=== PATIENT | female | born 1975 | race Caucasian/White ===

== ENCOUNTER 2017-01-16 14:12 | Observation (INO) | payer SELFPAY ==
[2017-01-16 14:12] VITALS: BMI 26.5
--- NOTE | 2017-01-16 15:13 | ED PDOC ---
HPI: General Adult Time Seen by Provider: 01/16/17 14:43 Chief Complaint (Nursing): Back Pain History Per: Patient Additional Complaint(s): Pt. states or the past 20 months she's had non-radiating atraumatic lower back pain. Reports pain began while she was and has continued despite no longer being . States that this past week she's developed increase in urinary frequency without dysuria or hematuria. Pain in lower back is worsened with movement. Denies incontinence, fever, trauma, abdominal pain, N/V/D, flank pain. Past Medical History Reviewed: Historical Data, Nursing Documentation, Vital Signs Vital Signs: Last Vital Signs Temp 98.3 F 01/16/17 22:04 Pulse 62 01/16/17 23:30 Resp 20 01/16/17 22:04 BP 91/55 L 01/16/17 22:04 Pulse Ox 100 01/16/17 23:30 - Medical History PMH: Gastritis - Surgical History Surgical History: Cholecystectomy - Family History Family History: States: No Known Family Hx - Immunization History Hx Tetanus Toxoid Vaccination: No Hx Influenza Vaccination: No Hx Pneumococcal Vaccination: No - Home Medications Home Medications: Ambulatory Orders Medication Instructions Recorded Famotidine [Pepcid] 20 mg PO DAILY #30 tab 05/13/14 Mag Hydrox/Al Hydrox/Simeth 30 ml PO BID #1 bottle 05/13/14 [Maalox Advanced Suspension] Doxylamine Succinate [Unisom] 1 tab PO BID #60 tab 09/02/14 Multivitamin and Pfimyswa44 1 tab PO DAILY #30 tab 09/02/14 [] Pyridoxine [Pyridoxine HCl] 1 tab PO BID #60 tab 09/02/14 Famotidine [Pepcid] 20 mg PO DAILY PRN #10 tab 12/28/14 - Allergies Allergies/Adverse Reactions: Allergies Allergy/AdvReac Type Severity Reaction Status Date / Time No Known Allergies Allergy Verified 01/16/17 14:37 Review of Systems ROS Statement: Except As Marked, All Systems Reviewed And Found Negative Genitourinary Female: Positive for: Frequency Musculoskeletal: Positive for: Back Pain Physical Exam - Physical Exam Appears: Positive for: Well, Non-toxic, No Acute Distress Skin: Positive for: Normal Color, Warm. Negative for: Rash Gastrointestinal/Abdominal: Positive for: Normal Exam, Soft. Negative for: Tenderness Back: Positive for: Normal Inspection, Muscle Spasm (b/l paralumbar tenderness) . Negative for: L CVA Tenderness, R CVA Tenderness, Vertebral Tenderness Extremity: Positive for: Normal ROM Neurologic/Psych: Positive for: Alert, Oriented. Negative for: Aphasia, Facial Droop - Laboratory Results Result Diagrams: 01/16/17 16:15 01/16/17 16:15 Urine POC: Negative Urine dip results: Positive for: Blood (moderate). Negative for: Leukocyte Esterase, Nitrate, Ketones, Glucose, Bilirubin, Protein - ECG ECG: Positive for: Interpreted By Me ECG Rhythm: Positive for: Sinus Rhythm. Negative for: ST/T Changes Rate: 62 O2 Sat by Pulse Oximetry: 100 - Progress ED Course And Treament: Toradol 15mg IM, flexeril 10mg PO given. LS spine x-ray ordered. ED OBSERVATION Discharge: Yes Date of observation admission: 01/16/17 Time of observation admission: 16:10 - Observation admission statement Patient is being placed in observation because:: back pain, hematuria - Progress Note Progress Note: 01/16/17 16:10 Pt. with moderate amount of hematuria. CT abd/pelvis w/o contrast ordered. Labs ordered. 01/16/17 17:33 K: 5.2. EKG, albuterol neb x 1 given. Pain improved. 01/16/17 19:16 Sleeping comfortably. No distress. Repeat BP: 91/44 01/16/17 22:16 IV NS bolus x 1 given. Repeat BP: 91/55. Previous VS indicate this is pt's baseline BP. 01/16/17 22:[address] at . 01/16/17 23:29 Pt. returned from [facility] without incident. Waiting on results. 01/16/17 23:35 CT abd/pelvis w/o contrast: no definite kidney stones as per my discussion with ad radiologist. Pt. informed of results. Disposition - Clinical Impression Clinical Impression: Low back pain, Hematuria, Hyperkalemia - Patient ED Disposition Is Patient to be Admitted: No - Disposition Disposition: Routine/Home Disposition Time: 23:38 Condition: STABLE
--- NOTE | 2017-01-16 16:30 | RAD ---
PROCEDURE: Radiographs of the Lumbar Spine. HISTORY: pain COMPARISON: None available. FINDINGS: BONES: Alignment appears satisfactory. No listhesis. No acute displaced fracture identified. DISC SPACES: Unremarkable. OTHER FINDINGS: None. IMPRESSION: No acute displaced fracture or subluxation identified.
[2017-01-16 16:47] LABS: BASO % 0.3 % (0.0-2.0); EOS # 0.1 K/uL (0.0-0.7); EOS % 0.8 % (0.0-4.0); HEMATOCRIT 38.9 % (34.0-47.0); LYMPH # 2.3 K/uL (1.0-4.3); LYMPH % 28.6 % (20.0-40.0); MEAN CELL VOLUME 91.4 fl (81.0-99.0); MEAN CORPUSCULAR HEMOGLOBIN 30.3 pg (27.0-31.0); MEAN CORPUSCULAR HGB CONC 33.1 g/dL (33.0-37.0); MEAN PLATELET VOLUME 9.5 fl (7.2-11.7); MONO # 0.6 K/uL (0.0-0.8); MONO % 7.7 % (0.0-10.0); NEUT % 62.6 % (50.0-75.0); RED CELL DISTRIBUTION WIDTH 13.4 % (11.5-14.5)
[2017-01-16 17:06] LABS: ALB/GLOB RATIO 1.3 (1.0-2.1); ALKALINE PHOSPHATASE 64 U/L (38-126); ALT/SGPT 29 U/L (9-52); AST/SGOT 16 U/L (14-36); BILIRUBIN,TOTAL 0.6 mg/dl (0.2-1.3); BLOOD UREA NITROGEN 15 mg/dl (7-17); CALCIUM 9.6 mg/dL (8.4-10.2); CARBON DIOXIDE 23 mmol/L (22-30); CHLORIDE 105 mmol/L (98-107); GFR AFRICAN-AMERICAN > 60; GLUCOSE,RANDOM 91 mg/dL (65-105); SODIUM 138 mmol/l (132-148); TOTAL PROTEIN 7.2 G/DL (6.3-8.2)
[2017-01-16 17:09] LABS: POTASSIUM 5.2 MMOL/L (3.6-5.0)
[2017-01-16] MEDS ORDERED: Albuterol 0.083% Inhal Sol (2.5 mg/3 mL) UD INH STA (17:32)
[2017-01-16] MEDS ORDERED: Albuterol 0.083% Inhal Sol (2.5 mg/3 mL) UD ONE (17:55)
[2017-01-16] MEDS ORDERED: Sodium Chloride 0.9% 1,000 ML IV STA (20:18)
[2017-01-16 20:31] VITALS: RESP 20; TEMP 98.3
[2017-01-16 22:04] VITALS: BP 91/55
[2017-01-16 22:17] VITALS: PULSE 62; O2SAT 100
--- NOTE | 2017-01-18 07:22 | CARD ---
APPROVED REPORT EKG Measurement Heart [id number] <Conclusion> Normal sinus rhythm Normal ECG
== END 2017-01-16 23:42 | disposition home or self-care (01) ==
LOC: H.ER 14:12 → H.EROBSV 16:09
PROVIDERS: ADMIT Emergency Medicine; ATTEND Emergency Medicine
DX: M54.5 Low back pain (principal); E87.5 Hyperkalemia; R31.9 Hematuria, unspecified
CPT/HCPCS: 72100; 80053; 85025; 93005; 96372; 99283; G0378; J1885; J7040

== ENCOUNTER 2018-10-23 12:22 | Observation (INO) | payer OTHER ==
[2018-10-23 12:23] VITALS: BMI 26.5
--- NOTE | 2018-10-23 13:22 | ED PDOC ---
HPI: Abdomen History Per: Patient, Counter Roller (Edvinpatrica, Nepali: [id number]) Onset/Duration Of Symptoms: Days Location Of Pain/Discomfort: RUQ Associated Symptoms: Chills Additional Complaint(s): Pt is a 42 y/o female with hx of Nephrolithiasis and Cholecystectomy presenting to ED with complaints of RUQ and R. Flank pain. States pain began 2 weeks ago, was initially intermittent, but 3 days ago became constant. Aggravating factors include movement and urinating. She states this pain feels like when she had her gall bladder removed many years ago. She also reports nausea and chills. Denies fevers, vomiting, dysuria, blood in urine or stool, or any change in pain after eating. ROS: loose stools x3 days PMD: none PMHX: Nephrolithiasis (15 years ago, treated conservatively, no surgical intervention), Cholelithiasis s/p Cholecystectomy (10 years ago). Acute Hepatitis A/B infection in 2013 PSurgHx: R. Ovarian cystectomy FmH: Does not know Social: Denies smoking, alcohol, or drug use <Silvestre Bullard - Last Filed: 10/23/18 15:41> <Sana Mckeon - Last Filed: 10/26/18 17:16> Time Seen by Provider: 10/23/18 12:54 Chief Complaint (Nursing): Abdominal Pain Supervising Attending Note - Supervising Attending Note The Documented history was done by the: Physician Windows Deployment Technician, Attending Physician The documented physical exam was done by the: Physician Windows Deployment Technician, Attending Physician The documented procedures were done by the: Physician Windows Deployment Technician, Attending Phys ician - Attestation: I have personally seen and examined this patient.: Yes I have fully participated in the care of the patient.: Yes I have reviewed all pertinent clinical information: Yes <Sana Mckeon - Last Filed: 10/26/18 17:16> Past Medical History Reviewed: Historical Data, Nursing Documentation, Vital Signs Vital Signs: Last Vital Signs Temp 98.4 F 10/23/18 12:29 Pulse 77 10/23/18 12:29 Resp 18 10/23/18 12:29 BP 111/65 10/23/18 12:29 Pulse Ox 100 10/23/18 12:29 - Medical History PMH: Gastritis, Hepatitis, Kidney Stones - Surgical History Surgical History: Cholecystectomy - Family History Family History: States: Unknown Family Hx - Living Arrangements Living Arrangements: With Family - Immunization History Hx Tetanus Toxoid Vaccination: No Hx Influenza Vaccination: No Hx Pneumococcal Vaccination: No <Silvestre Bullard - Last Filed: 10/23/18 15:41> Reviewed: Historical Data Vital Signs: Last Vital Signs Temp 98.0 F 10/24/18 08:04 Pulse 66 10/24/18 08:04 Resp 19 10/24/18 08:04 BP 99/65 L 10/24/18 08:04 Pulse Ox 98 10/24/18 08:04 <Sana Mckeon A - Last Filed: 10/26/18 17:16> - Home Medications Home Medications: Ambulatory Orders Medication Instructions Recorded No Known Home Med 10/23/18 - Allergies Allergies/Adverse Reactions: Allergies Allergy/AdvReac Type Severity Reaction Status Date / Time No Known Allergies Allergy Verified 10/23/18 12:29 Review of Systems Constitutional: Positive for: Chills. Negative for: Fever Cardiovascular: Negative for: Chest Pain Respiratory: Negative for: Cough, Shortness of Breath Gastrointestinal: Positive for: Nausea, Abdominal Pain, Diarrhea. Negative for: Vomiting, Melena, Hematochezia, Hematemesis Genitourinary Female: Negative for: Hematuria Skin: Negative for: Rash <Silvestre Bullard - Last Filed: 10/23/18 15:41> ROS Statement: Except As Marked, All Systems Reviewed And Found Negative <Sana Mckeon A - Last Filed: 10/26/18 17:16> Physical Exam - Physical Exam Appears: Positive for: Uncomfortable Skin: Positive for: Normal Color Neck: Positive for: Normal, Supple Cardiovascular/Chest: Positive for: Regular Rate, Rhythm Respiratory: Positive for: Normal Breath Sounds. Negative for: Crackles, Rales, Wheezing Pulses-Radial (L): 2+ Pulses-Radial (R): 2+ Gastrointestinal/Abdominal: Positive for: Soft, Tenderness (tenderness on light palpation in RUQ and Epigastric region), Guarding (Voluntary, no involuntary). Negative for: Organomegaly, Distended, Hernia, Asicites Back: Positive for: R CVA Tenderness. Negative for: Vertebral Tenderness, Muscle Spasm Extremity: Positive for: Capillary Refill. Negative for: Pedal Edema Neurological/Psych: Positive for: Awake, Alert <Silvestre Bullard - Last Filed: 10/23/18 15:41> - Reviewed Nursing Documentation Reviewed: Yes Vital Signs Reviewed: Yes - Physical Exam Eye Exam: Positive for: EOMI <Sana Mckeon - Last Filed: 10/26/18 17:16> - Laboratory Results Result Diagrams: 10/23/18 13:25 10/23/18 13:25 - ECG O2 Sat by Pulse Oximetry: 100 <Silvestre Bullard - Last Filed: 10/23/18 15:41> - Laboratory Results Result Diagrams: 10/24/18 05:45 10/24/18 05:45 Lab Results: PT 11.8 Seconds (9.8-13.1) 10/24/18 05:45 INR 1.0 10/24/18 05:45 APTT 37.3 Seconds (25.6-37.1) H 10/24/18 05:45 Total Bilirubin 0.4 mg/dl (0.2-1.3) 10/23/18 13:25 AST 25 U/L (14-36) 10/23/18 13:25 ALT 19 U/L (9-52) 10/23/18 13:25 Alkaline Phosphatase 66 U/L (38-126) 10/23/18 13:25 Total Protein 7.4 G/DL (6.3-8.2) 10/23/18 13:25 Albumin 4.3 g/dL (3.5-5.0) 10/23/18 13:25 Globulin 3.2 gm/dL (2.2-3.9) 10/23/18 13:25 Albumin/Globulin Ratio 1.4 (1.0-2.1) 10/23/18 13:25 Lipase 77 U/L (23-300) 10/23/18 13:25 Urine Color Yellow (YELLOW) 10/23/18 13:25 Urine Appearance Clear (CLEAR) 10/23/18 13:25 Urine pH 5.0 (5.0-8.0) 10/23/18 13:25 Ur Specific [place] 1.019 (1.003-1.030) 10/23/18 13:25 Urine Protein Negative mg/dL (NEGATIVE) 10/23/18 13:25 Urine Glucose (UA) Negative mg/dL (NEGATIVE) 10/23/18 13:25 Urine Ketones Negative mg/dL (NEGATIVE) 10/23/18 13:25 Urine Blood Moderate (NEGATIVE) 10/23/18 13:25 Urine Nitrate Negative (NEGATIVE) 10/23/18 13:25 Urine Bilirubin Negative (NEGATIVE) 10/23/18 13:25 Urine Urobilinogen 0.2 mg/dL (0.2-1.0) 10/23/18 13:25 Ur Leukocyte Esterase Negative Sinan/uL (Negative) 10/23/18 13:25 <Sana Mckeon - Last Filed: 10/26/18 17:16> Medical Decision Making Medical Decision Making: Pt is a 42 y/o female with hx of Nephrolithiasis and Cholecystectomy presenting to ED with complaints of RUQ and R. Flank pain associated with chills and nausea. Differential diagnosis includes but not limited to Nephrolithiasis, Chol edocolithiasis, Hepatitis, Pancreatitis Toradol Zofran Pepcid CBC CMP Lipase UA Abdomen/Pelvis CT w/o contrast 1400 Pt re-assessed, received pain medication. Reports pain is improved, currently 2/ 10. Seen resting comfortably. All Labs wnl. UA moderate blood CT Abdomen Pending <Silvestre Bullard - Last Filed: 10/23/18 15:41> Disposition Discussed With : Sana Mckeon - Disposition Disposition Time: 15:41 <Silvestre Bullard - Last Filed: 10/23/18 15:41> - Patient ED Disposition Is Patient to be Admitted: Transfer of Care Counseled Patient/Family Regarding: Studies Performed, Diagnosis - Disposition Disposition: Transfer of Care Disposition Time: 15:00 Patient Signed Over To: Jairo Edmonds <Sana Mckeon - Last Filed: 10/26/18 17:16> - Clinical Impression Clinical Impression: Appendicitis - Disposition Condition: FAIR
[2018-10-23 13:59] LABS: URINE APPEARANCE CLEAR (CLEAR); URINE BILIRUBIN NEGATIVE (NEGATIVE); URINE BLOOD MODERATE (NEGATIVE); URINE COLOR YELLOW (YELLOW); URINE GLUCOSE (UA) NEGATIVE (NEGATIVE); URINE PROTEIN NEGATIVE (NEGATIVE)
[2018-10-23 14:00] LABS: URINE LEUKOCYTE ESTERASE NEGATIVE Leu/uL (Negative); URINE UROBILINOGEN 0.2 mg/dL (0.2-1.0)
[2018-10-23 14:02] LABS: ALB/GLOB RATIO 1.4 (1.0-2.1); ALBUMIN 4.3 g/dL (3.5-5.0); ALT/SGPT 19 U/L (9-52); AST/SGOT 25 U/L (14-36); BLOOD UREA NITROGEN 14 mg/dl (7-17); CALCIUM 9.7 mg/dL (8.4-10.2); GFR NON-AFRICAN AMERICAN > 60; LIPASE 77 U/L (23-300)
[2018-10-23 15:25] LABS: BASO % 0.5 % (0.0-2.0); EOS # 0.1 K/uL (0.0-0.7); EOS % 2.1 % (0.0-4.0); HEMOGLOBIN 12.8 g/dL (12.0-16.0); LYMPH # 1.8 K/uL (1.0-4.3); LYMPH % 27.4 % (20.0-40.0); MEAN CELL VOLUME 91.1 fl (81.0-99.0); MEAN CORPUSCULAR HEMOGLOBIN 30.1 pg (27.0-31.0); MEAN CORPUSCULAR HGB CONC 33.1 g/dL (33.0-37.0); MEAN PLATELET VOLUME 8.9 fl (7.2-11.7); MONO # 0.5 K/uL (0.0-0.8); MONO % 7.7 % (0.0-10.0); NEUT # 4.2 K/uL (1.8-7.0); NEUT % 62.3 % (50.0-75.0); RBC 4.25 Mil/uL (3.80-5.20); RED CELL DISTRIBUTION WIDTH 13.4 % (11.5-14.5); WHITE BLOOD COUNT 6.7 K/uL (4.8-10.8)
--- NOTE | 2018-10-23 15:38 | ED PDOC ---
- Laboratory Results Result Diagrams: 10/23/18 13:25 10/23/18 13:25 Lab Results: Total Bilirubin 0.4 mg/dl (0.2-1.3) 10/23/18 13:25 AST 25 U/L (14-36) 10/23/18 13:25 ALT 19 U/L (9-52) 10/23/18 13:25 Alkaline Phosphatase 66 U/L (38-126) 10/23/18 13:25 Total Protein 7.4 G/DL (6.3-8.2) 10/23/18 13:25 Albumin 4.3 g/dL (3.5-5.0) 10/23/18 13:25 Globulin 3.2 gm/dL (2.2-3.9) 10/23/18 13:25 Albumin/Globulin Ratio 1.4 (1.0-2.1) 10/23/18 13:25 Lipase 77 U/L (23-300) 10/23/18 13:25 Urine Color Yellow (YELLOW) 10/23/18 13:25 Urine Appearance Clear (CLEAR) 10/23/18 13:25 Urine pH 5.0 (5.0-8.0) 10/23/18 13:25 Ur Specific [place] 1.019 (1.003-1.030) 10/23/18 13:25 Urine Protein Negative mg/dL (NEGATIVE) 10/23/18 13:25 Urine Glucose (UA) Negative mg/dL (NEGATIVE) 10/23/18 13:25 Urine Ketones Negative mg/dL (NEGATIVE) 10/23/18 13:25 Urine Blood Moderate (NEGATIVE) 10/23/18 13:25 Urine Nitrate Negative (NEGATIVE) 10/23/18 13:25 Urine Bilirubin Negative (NEGATIVE) 10/23/18 13:25 Urine Urobilinogen 0.2 mg/dL (0.2-1.0) 10/23/18 13:25 Ur Leukocyte Esterase Negative Sinan/uL (Negative) 10/23/18 13:25 - ECG O2 Sat by Pulse Oximetry: 100 (RA) Pulse Ox Interpretation: Normal - CT Scan/US ct Other Rad Studies (CT/US): Read By Radiologist Other Rad Interpretation: appendicitis - Progress ED Course And Treament: 1720: Stable. AAOx3. Pain present on palpation. Spoke with surgery resident who will see pt. in ER. 1814: Spoke with surgery resident. Will consult. Want admit to medicine. Spoke with Dr. Hernandez. Will admit. Medical Decision Making Medical Decision Makin Patient signed over to me by Dr. Mckeon pending CT results. Scribe Attestation: Documented by Barbara Newell, acting as a scribe for Jairo Edmonds MD. Provider Scribe Attestation: All medical record entries made by the Scribe were at my direction and personally dictated by me. I have reviewed the chart and agree that the record accurately reflects my personal performance of the history, physical exam, medical decision making, and the department course for this patient. I have also personally directed, reviewed, and agree with the discharge instructions and disposition. Disposition - Clinical Impression Clinical Impression: Appendicitis - POA Present On Arrival: None - Disposition Disposition: Hospitalized as Observation Patient Disposition Time: 18:16 Condition: FAIR
[2018-10-23] MEDS ORDERED: Sodium Chloride 0.9% 50 ML IV ONE (15:54)
[2018-10-23] MEDS ORDERED: Iohexol 300 100 ML IJ ONE (15:54)
--- NOTE | 2018-10-23 17:18 | CT ---
Date of service: 10/23/2018 PROCEDURE: CT Abdomen and Pelvis with contrast HISTORY: right upper abdomen right flank pain COMPARISON: 05/17/2014 CT abdomen and pelvis. 05/17/2014 abdominal ultrasound. 05/18/2014 MRCP TECHNIQUE: Intravenous contrast dose: 95 cc Omnipaque 300. Radiation dose: Total exam DLP = 675.61 mGy-cm. This CT exam was performed using one or more of the following dose reduction techniques: Automated exposure control, adjustment of the mA and/or kV according to patient size, and/or use of iterative reconstruction technique. FINDINGS: LOWER THORAX: Unremarkable. LIVER: Unremarkable. No gross lesion or ductal dilatation. GALLBLADDER AND BILE DUCTS: Status post cholecystectomy. No abnormality is seen in the gallbladder fossa. PANCREAS: Unremarkable. No gross lesion or ductal dilatation. SPLEEN: Unremarkable. ADRENALS: Unremarkable. No mass. KIDNEYS AND URETERS: Unremarkable. No hydronephrosis. No solid mass. VASCULATURE: Unremarkable. No aortic aneurysm. No atherosclerotic calcification or mural plaque present. BOWEL: Unremarkable. No obstruction. No gross mural thickening. APPENDIX: 8.5 mm Appendix with contrasting enhancement of the wall, suggest early acute appendicitis PERITONEUM: Unremarkable. No free fluid. No free air. LYMPH NODES: Unremarkable. No enlarged lymph nodes. BLADDER: Unremarkable. REPRODUCTIVE: Prominent para adnexal vessels may reflect pelvic congestion syndrome BONES: No acute fracture. OTHER FINDINGS: None. IMPRESSION: Early acute appendicitis suspect Communication of results I discussed findings with Dr. Edmonds in the ED at 17:05
[2018-10-23] MEDS ORDERED: Piperacillin/Tazobact 3.375 GM in Sodium Chloride 0.9% 100 ML IV STA (17:28)
[2018-10-23] MEDS ORDERED: Piperacillin/Tazobact 3.375 gm Inj IVPB ONE (17:35)
--- NOTE | 2018-10-23 22:44 | CP.PCM.CON ---
History of Present Illness - History of Present Illness History of Present Illness: General Surgery Consult for Dr. Antoine This is a 42F with no PMH who presents to the [facility] ED with complaints of abdominal pain that began 1-2 weeks ago however its been worse the last 4 days. The pain is of right sided upper and lower abdomen. Nothing makes the pain better and moving makes it worse. She reports that pain is similar to when she had the GB removed in the sense that at that time movement made her pain worse as well. She reports that she is nauseas however denies vomiting. She denies fevers or chills. She is tolerating diet and passing gas and moving her bowels normally. PMH: Kidney stones PSH: Open [place], R. Ovarian cystectomy ALL: NKDA Social: Denies smoking, alcohol, or drug use Past Patient History - Tetanus Immunizations Tetanus Immunization: Unknown - Past Medical History & Family History Past Medical History?: No - Past Social History Smoking Status: Never Smoked - CARDIAC Hx Cardiac Disorders: Yes - PULMONARY Hx Respiratory Disorders: No - NEUROLOGICAL Hx Neurological Disorder: No - HEENT Hx HEENT Problems: No - RENAL Hx Chronic Kidney Disease: No - ENDOCRINE/METABOLIC Hx Endocrine Disorders: No - HEMATOLOGICAL/ONCOLOGICAL Hx Blood Disorders: No - INTEGUMENTARY Hx Dermatological Problems: No - MUSCULOSKELETAL/RHEUMATOLOGICAL Hx Musculoskeletal Disorders: No - GASTROINTESTINAL Hx Gastritis: Yes - GENITOURINARY/GYNECOLOGICAL Hx Genitourinary Disorders: No - PSYCHIATRIC Hx Psychophysiologic Disorder: No - SURGICAL HISTORY Hx Cholecystectomy: Yes - ANESTHESIA Hx Anesthesia: Yes Hx Anesthesia Reactions: No Hx Malignant Hyperthermia: No Meds Allergies/Adverse Reactions: Allergies Allergy/AdvReac Type Severity Reaction Status Date / Time No Known Allergies Allergy Verified 10/23/18 12:29 Physical Exam - Constitutional Appears: Non-toxic - Head Exam Head Exam: ATRAUMATIC, NORMOCEPHALIC - Eye Exam Eye Exam: EOMI, Normal appearance - ENT Exam ENT Exam: Mucous Membranes Moist - Cardiovascular Exam Cardiovascular Exam: +S1, +S2 - GI/Abdominal Exam GI & Abdominal Exam: Soft, Tenderness. absent: Distended, Firm, Guarding, Hernia, Rigid - Neurological Exam Neurological exam: Alert, Oriented x3 - Psychiatric Exam Psychiatric exam: Normal Affect, Normal Mood - Skin Skin Exam: Dry, Intact Results - Vital Signs Recent Vital Signs: Last Vital Signs Temp 98.6 F 10/23/18 22:11 Pulse 68 10/23/18 22:11 Resp 18 10/23/18 22:11 BP 99/57 L 10/23/18 22:11 Pulse Ox 100 10/23/18 22:01 - Labs Result Diagrams: 10/23/18 13:25 10/23/18 13:25 Labs: Laboratory Results - last 24 hr 10/23/18 10/23/18 10/23/18 12:50 13:25 13:25 WBC 6.7 Cancelled RBC 4.25 Cancelled Hgb 12.8 Cancelled Hct 38.7 Cancelled MCV 91.1 Cancelled MCH 30.1 Cancelled MCHC 33.1 Cancelled RDW 13.4 Cancelled Plt Count 247 Cancelled MPV 8.9 Cancelled Neut % (Auto) 62.3 Cancelled Lymph % (Auto) 27.4 Cancelled [place] % (Auto) 7.7 Cancelled Eos % (Auto) 2.1 Cancelled Baso % (Auto) 0.5 Cancelled Neut # (Auto) 4.2 Lymph # (Auto) 1.8 Cancelled [place] # (Auto) 0.5 Cancelled Eos # (Auto) 0.1 Cancelled Baso # (Auto) 0.0 Cancelled Absolute Neuts (auto) Cancelled Sodium 139 Potassium 4.3 Chloride 103 Carbon Dioxide 26 Anion Gap 14 BUN 14 Creatinine 0.5 L Est GFR ( Amer) > 60 Est GFR (Non-Af Amer) > 60 Random Glucose 90 Calcium 9.7 Total Bilirubin 0.4 AST 25 ALT 19 Alkaline Phosphatase 66 Total Protein 7.4 Albumin 4.3 Globulin 3.2 Albumin/Globulin Ratio 1.4 Lipase 77 Urine Color Urine Appearance Urine pH Ur Specific [place] Urine Protein Urine Glucose (UA) Urine Ketones Urine Blood Urine Nitrate Urine Bilirubin Urine Urobilinogen Ur Leukocyte Esterase 10/23/18 13:25 WBC RBC Hgb Hct MCV MCH MCHC RDW Plt Count MPV Neut % (Auto) Lymph % (Auto) [place] % (Auto) Eos % (Auto) Baso % (Auto) Neut # (Auto) Lymph # (Auto) [place]odd[place] # (Auto) Eos # (Auto) Baso # (Auto) Absolute Neuts (auto) Sodium Potassium Chloride Carbon Dioxide Anion Gap BUN Creatinine Est GFR ( Amer) Est GFR (Non-Af Amer) Random Glucose Calcium Total Bilirubin AST ALT Alkaline Phosphatase Total Protein Albumin Globulin Albumin/Globulin Ratio Lipase Urine Color Yellow Urine Appearance Clear Urine pH 5.0 Ur Specific [place] 1.019 Urine Protein Negative Urine Glucose (UA) Negative Urine Ketones Negative Urine Blood Moderate Urine Nitrate Negative Urine Bilirubin Negative Urine Urobilinogen 0.2 Ur Leukocyte Esterase Negative - Imaging and Cardiology CT scan - abdomen Status: Image reviewed by me, Report reviewed by me CT scan - pelvis Status: Image reviewed by me, Report reviewed by me Assessment & Plan - Assessment and Plan (Free Text) Assessment: 42F with abdominal pain CT scan reading for possible early appendicitis however, however it is my opinion that it is unlikely to be an appendicitis at this time, due to the patients labs, clinical exam and duration of symptoms do not correlate. No surgical intervention planned at this time however we will re-evaluate the patient in the AM. Continue medical management per primary. D/W Dr. Elina Saleh PGY3
[2018-10-23] MEDS ORDERED: Dextrose 5%/0.45% NS 1,000 ML IV SCH (23:15)
[2018-10-23 23:54] VITALS: TEMP 98
[2018-10-24] MEDS: Piperacillin/Tazobact 3.375 GM in Sodium Chloride 0.9% 100 ML IVPB SCH ×2 (01:39→11:20)
[2018-10-24 06:39] LABS: BASO % 0.4 % (0.0-2.0); EOS # 0.2 K/uL (0.0-0.7); EOS % 3.1 % (0.0-4.0); LYMPH # 2.2 K/uL (1.0-4.3); LYMPH % 35.3 % (20.0-40.0); MEAN CELL VOLUME 90.8 fl (81.0-99.0); MEAN CORPUSCULAR HEMOGLOBIN 30.1 pg (27.0-31.0); MEAN CORPUSCULAR HGB CONC 33.1 g/dL (33.0-37.0); MONO # 0.5 K/uL (0.0-0.8); MONO % 8.3 % (0.0-10.0); NEUT # 3.3 K/uL (1.8-7.0); NEUT % 52.9 % (50.0-75.0); RBC 4.01 Mil/uL (3.80-5.20); RED CELL DISTRIBUTION WIDTH 13.6 % (11.5-14.5); WHITE BLOOD COUNT 6.2 K/uL (4.8-10.8)
[2018-10-24 06:47] LABS: BLOOD UREA NITROGEN 15 mg/dl (7-17); GFR NON-AFRICAN AMERICAN > 60
[2018-10-24 06:49] LABS: PROTHROMBIN TIME 11.8 Seconds (9.8-13.1)
[2018-10-24 06:51] LABS: PARTIAL THROMBOPLASTIN TIME 37.3 Seconds (25.6-37.1)
[2018-10-24 08:05] VITALS: BP 99/65; PULSE 66; RESP 19; O2SAT 98
--- NOTE | 2018-10-24 08:07 | CP.PCM.PN ---
Subjective - Date & Time of Evaluation Date of Evaluation: 10/24/18 Time of Evaluation: 08:49 - Subjective Subjective: General Surgery Note for Dr. Antoine Patient seen and examined at bedside. No acute event overnight. Patient states pain has improved. She is hungry and asking for diet. She admits to passing flatus. Denies fever/chills, nausea/vomiting, diarrhea, cp, SOB, urinary symptoms. Objective - Vital Signs/Intake and Output Vital Signs (last 24 hours): Temp Pulse Resp BP Pulse Ox 98.0 F 66 19 99/65 L 98 10/24/18 08:04 10/24/18 08:04 10/24/18 08:04 10/24/18 08:04 10/24/18 08:04 - Medications Medications: Current Medications Acetaminophen (Tylenol 325mg Tab) 650 mg PO Q4 PRN PRN Reason: For fever with temp <101.1 F Dextrose/Sodium Chloride (Dextrose 5%/0.45% Ns 1000 Ml) 1,000 mls @ 100 mls/hr IV .Q10H MELANIE Stop: 10/24/18 23:04 Piperacillin Sod/Tazobactam (Sod 3.375 gm/ Sodium Chloride) 100 mls @ 100 mls/hr IVPB Q8 MELANIE; Protocol Last Admin: 10/24/18 01:39 Dose: 100 mls/hr Ketorolac Tromethamine (Toradol) 30 mg IVP Q6 PRN PRN Reason: Pain, severe (8-10) Last Admin: 10/24/18 02:00 Dose: 30 mg Ondansetron HCl (Zofran Inj) 4 mg IVP Q4 PRN PRN Reason: Nausea/Vomiting Pantoprazole Sodium (Protonix Inj) 40 mg IVP DAILY MELANIE - Labs Labs: 10/24/18 05:45 10/24/18 05:45 PT 11.8 Seconds (9.8-13.1) 10/24/18 05:45 INR 1.0 10/24/18 05:45 APTT 37.3 Seconds (25.6-37.1) H 10/24/18 05:45 - Constitutional Appears: No Acute Distress - Head Exam Head Exam: ATRAUMATIC, NORMOCEPHALIC - Eye Exam Eye Exam: EOMI, Normal appearance Pupil Exam: PERRL - ENT Exam ENT Exam: Mucous Membranes Moist - Respiratory Exam Respiratory Exam: NORMAL BREATHING PATTERN - Cardiovascular Exam Cardiovascular Exam: REGULAR RHYTHM - GI/Abdominal Exam GI & Abdominal Exam: Soft, Normal Bowel Sounds. absent: Distended, Firm, Guarding, Rigid, Tenderness, Rebound - Extremities Exam Extremities Exam: Normal Capillary Refill - Back Exam Back Exam: absent: CVA tenderness (L), CVA tenderness (R) - Neurological Exam Neurological Exam: Alert, Awake, Oriented x3 - Psychiatric Exam Psychiatric exam: Normal Affect, Normal Mood - Skin Skin Exam: Dry, Intact, Warm Assessment and Plan - Assessment and Plan (Free Text) Assessment: 42 F who presented with abdominal pain Plan: Diet as tolerated Clinical symptoms does not suggest acute appendicitis Will continue to follow Discussed with Dr. Elina Bernal PGY2
--- NOTE | 2018-10-24 09:28 | CP.PCM.HP ---
History of Present Illness - History of Present Illness History of Present Illness: 42 YR OLD FEMALE ADMITTED WITH R SIDED ABDOMINAL PAINS AND NAUSEA X 2 WEEKS,WORSE 4 DAYS AGO.FEELS BETTER THIS AM AFTER REST AND IV THERAPY.HX OF SIMILAR PROBLEMS YRS AGO WHEN SHE HAD CHOLECYSTECTOMY.SEEN BY SURGERY AND CLEARED FOR BDISCHARGE AND OUT PT FOLLOW UP IF SHE TOLERATES DIET.[DX--PROBABLE ADHESIONS] Present on Admission - Present on Admission Any Indicators Present on Admission: No Past Patient History - Tetanus Immunizations Tetanus Immunization: Unknown - Past Medical History & Family History Past Medical History?: No - Past Social History Smoking Status: Never Smoked - CARDIAC Hx Cardiac Disorders: Yes - PULMONARY Hx Respiratory Disorders: No - NEUROLOGICAL Hx Neurological Disorder: No - HEENT Hx HEENT Problems: No - RENAL Hx Chronic Kidney Disease: No - ENDOCRINE/METABOLIC Hx Endocrine Disorders: No - HEMATOLOGICAL/ONCOLOGICAL Hx Blood Disorders: No - INTEGUMENTARY Hx Dermatological Problems: No - MUSCULOSKELETAL/RHEUMATOLOGICAL Hx Musculoskeletal Disorders: No - GASTROINTESTINAL Hx Gastritis: Yes - GENITOURINARY/GYNECOLOGICAL Hx Genitourinary Disorders: No - PSYCHIATRIC Hx Psychophysiologic Disorder: No - SURGICAL HISTORY Hx Cholecystectomy: Yes - ANESTHESIA Hx Anesthesia: Yes Hx Anesthesia Reactions: No Hx Malignant Hyperthermia: No Meds Allergies/Adverse Reactions: Allergies Allergy/AdvReac Type Severity Reaction Status Date / Time No Known Allergies Allergy Verified 10/23/18 12:29 Physical Exam - Constitutional Appears: Well - Head Exam Head Exam: ATRAUMATIC, NORMAL INSPECTION, NORMOCEPHALIC - Eye Exam Eye Exam: EOMI, Normal appearance, PERRL Pupil Exam: NORMAL ACCOMODATION, PERRL - ENT Exam ENT Exam: Mucous Membranes Moist, Normal Exam - Neck Exam Neck exam: Positive for: Normal Inspection - Respiratory Exam Respiratory Exam: Clear to Auscultation Bilateral, NORMAL BREATHING PATTERN - Cardiovascular Exam Cardiovascular Exam: REGULAR RHYTHM - GI/Abdominal Exam GI & Abdominal Exam: Normal Bowel Sounds, Soft. absent: Tenderness - Rectal Exam Rectal Exam: NORMAL INSPECTION - Extremities Exam Extremities exam: Positive for: normal inspection - Back Exam Back exam: NORMAL INSPECTION - Neurological Exam Neurological exam: Alert, CN II-XII Intact, Normal Gait, Oriented x3, Reflexes Normal - Psychiatric Exam Psychiatric exam: Normal Affect, Normal Mood - Skin Skin Exam: Dry, Intact, Normal Color, Warm Results - Vital Signs Recent Vital Signs: Last Vital Signs Temp 98.0 F 10/24/18 08:04 Pulse 66 10/24/18 08:04 Resp 19 10/24/18 08:04 BP 99/65 L 10/24/18 08:04 Pulse Ox 98 10/24/18 08:04 - Labs Result Diagrams: 10/24/18 05:45 10/24/18 05:45 Labs: Laboratory Results - last 24 hr 10/23/18 10/23/18 10/23/18 12:50 13:25 13:25 WBC 6.7 Cancelled RBC 4.25 Cancelled Hgb 12.8 Cancelled Hct 38.7 Cancelled MCV 91.1 Cancelled MCH 30.1 Cancelled MCHC 33.1 Cancelled RDW 13.4 Cancelled Plt Count 247 Cancelled MPV 8.9 Cancelled Neut % (Auto) 62.3 Cancelled Lymph % (Auto) 27.4 Cancelled [place] % (Auto) 7.7 Cancelled Eos % (Auto) 2.1 Cancelled Baso % (Auto) 0.5 Cancelled Neut # (Auto) 4.2 Lymph # (Auto) 1.8 Cancelled [place] # (Auto) 0.5 Cancelled Eos # (Auto) 0.1 Cancelled Baso # (Auto) 0.0 Cancelled Absolute Neuts (auto) Cancelled PT INR APTT Sodium 139 Potassium 4.3 Chloride 103 Carbon Dioxide 26 Anion Gap 14 BUN 14 Creatinine 0.5 L Est GFR ( Amer) > 60 Est GFR (Non-Af Amer) > 60 Random Glucose 90 Calcium 9.7 Total Bilirubin 0.4 AST 25 ALT 19 Alkaline Phosphatase 66 Total Protein 7.4 Albumin 4.3 Globulin 3.2 Albumin/Globulin Ratio 1.4 Lipase 77 Urine Color Urine Appearance Urine pH Ur Specific [place] Urine Protein Urine Glucose (UA) Urine Ketones Urine Blood Urine Nitrate Urine Bilirubin Urine Urobilinogen Ur Leukocyte Esterase 10/23/18 10/24/18 10/24/18 13:25 05:45 05:45 WBC 6.2 RBC 4.01 Hgb 12.0 Hct 36.4 MCV 90.8 MCH 30.1 MCHC 33.1 RDW 13.6 Plt Count 220 MPV 9.0 Neut % (Auto) 52.9 Lymph % (Auto) 35.3 [place] % (Auto) 8.3 Eos % (Auto) 3.1 Baso % (Auto) 0.4 Neut # (Auto) 3.3 Lymph # (Auto) 2.2 [place] # (Auto) 0.5 Eos # (Auto) 0.2 Baso # (Auto) 0.0 Absolute Neuts (auto) PT 11.8 INR 1.0 APTT 37.3 H Sodium Potassium Chloride Carbon Dioxide Anion Gap BUN Creatinine Est GFR ( Amer) Est GFR (Non-Af Amer) Random Glucose Calcium Total Bilirubin AST ALT Alkaline Phosphatase Total Protein Albumin Globulin Albumin/Globulin Ratio Lipase Urine Color Yellow Urine Appearance Clear Urine pH 5.0 Ur Specific [place] 1.019 Urine Protein Negative Urine Glucose (UA) Negative Urine Ketones Negative Urine Blood Moderate Urine Nitrate Negative Urine Bilirubin Negative Urine Urobilinogen 0.2 Ur Leukocyte Esterase Negative 10/24/18 05:45 WBC RBC Hgb Hct MCV MCH MCHC RDW Plt Count MPV Neut % (Auto) Lymph % (Auto) [place] % (Auto) Eos % (Auto) Baso % (Auto) Neut # (Auto) Lymph # (Auto) [place] # (Auto) Eos # (Auto) Baso # (Auto) Absolute Neuts (auto) PT INR APTT Sodium 138 Potassium 3.8 Chloride 102 Carbon Dioxide 26 Anion Gap 14 BUN 15 Creatinine 0.8 Est GFR ( Amer) > 60 Est GFR (Non-Af Amer) > 60 Random Glucose 88 Calcium 9.0 Total Bilirubin AST ALT Alkaline Phosphatase Total Protein Albumin Globulin Albumin/Globulin Ratio Lipase Urine Color Urine Appearance Urine pH Ur Specific [place] Urine Protein Urine Glucose (UA) Urine Ketones Urine Blood Urine Nitrate Urine Bilirubin Urine Urobilinogen Ur Leukocyte Esterase Assessment & Plan - Assessment and Plan (Free Text) Assessment: ABDOMINAL PAINS PROBAB LE ADHESIONS SURGERY DOUBTS APPENDICITIS Plan: ADVANCE DIET DISCHARGE TODAY IF DIET IS TOLERATED - Date & Time Date: 10/24/18 Time: 09:31
--- NOTE | 2018-10-24 09:34 | CP.PCM.DIS ---
Provider - Provider Date of Admission: 10/23/18 18:14 Attending physician: Monster Hernandez MD Consults: 10/23/18 18:14 Surgery [General Surgery Consult] Stat Comment: Consulting Provider: Francisco Javier Antoine Consulting Physician: Francisco Javier Antoine Reason for Consult: appendicitis Time Spent in preparation of Discharge (in minutes): 30 Diagnosis - Discharge Diagnosis (1) Abdominal adhesions Status: Acute (2) Abdominal pain Status: Acute Hospital Course - Lab Results Lab Results: Most Recent Lab Values WBC 6.2 K/uL (4.8-10.8) 10/24/18 05:45 RBC 4.01 Mil/uL (3.80-5.20) 10/24/18 05:45 Hgb 12.0 g/dL (12.0-16.0) 10/24/18 05:45 Hct 36.4 % (34.0-47.0) 10/24/18 05:45 MCV 90.8 fl (81.0-99.0) 10/24/18 05:45 MCH 30.1 pg (27.0-31.0) 10/24/18 05:45 MCHC 33.1 g/dL (33.0-37.0) 10/24/18 05:45 RDW 13.6 % (11.5-14.5) 10/24/18 05:45 Plt Count 220 K/uL (130-400) 10/24/18 05:45 MPV 9.0 fl (7.2-11.7) 10/24/18 05:45 Neut % (Auto) 52.9 % (50.0-75.0) 10/24/18 05:45 Lymph % (Auto) 35.3 % (20.0-40.0) 10/24/18 05:45 [place] % (Auto) 8.3 % (0.0-10.0) 10/24/18 05:45 Eos % (Auto) 3.1 % (0.0-4.0) 10/24/18 05:45 Baso % (Auto) 0.4 % (0.0-2.0) 10/24/18 05:45 Neut # (Auto) 3.3 K/uL (1.8-7.0) 10/24/18 05:45 Lymph # (Auto) 2.2 K/uL (1.0-4.3) 10/24/18 05:45 [place] # (Auto) 0.5 K/uL (0.0-0.8) 10/24/18 05:45 Eos # (Auto) 0.2 K/uL (0.0-0.7) 10/24/18 05:45 Baso # (Auto) 0.0 K/uL (0.0-0.2) 10/24/18 05:45 Absolute Neuts (auto) Cancelled 10/23/18 13:25 PT 11.8 Seconds (9.8-13.1) 10/24/18 05:45 INR 1.0 10/24/18 05:45 APTT 37.3 Seconds (25.6-37.1) H 10/24/18 05:45 Sodium 138 mmol/l (132-148) 10/24/18 05:45 Potassium 3.8 MMOL/L (3.6-5.0) 10/24/18 05:45 Chloride 102 mmol/L (98-107) 10/24/18 05:45 Carbon Dioxide 26 mmol/L (22-30) 10/24/18 05:45 Anion Gap 14 (10-20) 10/24/18 05:45 BUN 15 mg/dl (7-17) 10/24/18 05:45 Creatinine 0.8 mg/dl (0.7-1.2) 10/24/18 05:45 Est GFR ( Amer) > 60 10/24/18 05:45 Est GFR (Non-Af Amer) > 60 10/24/18 05:45 Random Glucose 88 mg/dL (65-105) 10/24/18 05:45 Calcium 9.0 mg/dL (8.4-10.2) 10/24/18 05:45 Total Bilirubin 0.4 mg/dl (0.2-1.3) 10/23/18 13:25 AST 25 U/L (14-36) 10/23/18 13:25 ALT 19 U/L (9-52) 10/23/18 13:25 Alkaline Phosphatase 66 U/L (38-126) 10/23/18 13:25 Total Protein 7.4 G/DL (6.3-8.2) 10/23/18 13:25 Albumin 4.3 g/dL (3.5-5.0) 10/23/18 13:25 Globulin 3.2 gm/dL (2.2-3.9) 10/23/18 13:25 Albumin/Globulin Ratio 1.4 (1.0-2.1) 10/23/18 13:25 Lipase 77 U/L (23-300) 10/23/18 13:25 Urine Color Yellow (YELLOW) 10/23/18 13:25 Urine Appearance Clear (CLEAR) 10/23/18 13:25 Urine pH 5.0 (5.0-8.0) 10/23/18 13:25 Ur Specific [place] 1.019 (1.003-1.030) 10/23/18 13:25 Urine Protein Negative mg/dL (NEGATIVE) 10/23/18 13:25 Urine Glucose (UA) Negative mg/dL (NEGATIVE) 10/23/18 13:25 Urine Ketones Negative mg/dL (NEGATIVE) 10/23/18 13:25 Urine Blood Moderate (NEGATIVE) 10/23/18 13:25 Urine Nitrate Negative (NEGATIVE) 10/23/18 13:25 Urine Bilirubin Negative (NEGATIVE) 10/23/18 13:25 Urine Urobilinogen 0.2 mg/dL (0.2-1.0) 10/23/18 13:25 Ur Leukocyte Esterase Negative [place]/uL (Negative) 10/23/18 13:25 - Hospital Course Hospital Course: PAIN RESOLVED CLEARED FOR DISCHARGE BY SURGEONS OUT PT FOLLOW UP - Date & Time of H&P Date of H&P: 10/24/18 Time of H&P: 09:33 Discharge Exam - Head Exam Head Exam: ATRAUMATIC, NORMAL INSPECTION, NORMOCEPHALIC Discharge Plan - Follow Up Plan Condition: FAIR Disposition: HOME/ ROUTINE Instructions: Appendicitis, Adult (DC) Additional Instructions: follow up with your PMD and surgeon 1 week Referrals: Francisco Javier Antoine MD [Staff Provider] - Aniya Price [Family Provider] -
--- NOTE | 2018-10-24 15:19 | RAD ---
Date of service: 10/24/2018 HISTORY: appendicitis COMPARISON: 05/18/2014 TECHNIQUE: Chest PA and lateral FINDINGS: LUNGS: No active pulmonary disease. PLEURA: No significant pleural effusion identified. No pneumothorax apparent. CARDIOVASCULAR: No aortic atherosclerotic calcification present. Normal cardiac size. No pulmonary vascular congestion. OSSEOUS STRUCTURES: No significant abnormalities. VISUALIZED UPPER ABDOMEN: Normal. OTHER FINDINGS: None. IMPRESSION: No active disease. No significant interval change compared to the prior examination(s).
== END 2018-10-24 15:45 | disposition home or self-care (01) ==
LOC: H.ER 12:22 → H.ERHOLD 18:14 → H.MEDSURG1 22:15
PROVIDERS: ADMIT Internal Medicine Pulmonary Disease; ATTEND Internal Medicine Pulmonary Disease
DX: K66.0 Peritoneal adhesions (postprocedural) (postinfection) (principal); K29.70 Gastritis, unspecified, without bleeding; Z87.442 Personal history of urinary calculi; Z90.49 Acquired absence of other specified parts of digestive tract
CPT/HCPCS: 36415; 71046; 74177; 80048; 80053; 81003; 81025; 83690; 85025; 85610; 85730; 87040; 96365; 96366; 96375; 96376; 99284; C9113; G0378; J1885; J2405; J2543; Q9967